=== PATIENT | female | born 2000 | race Caucasian/White ===

== ENCOUNTER 2020-04-04 06:44 | Emergency (ER) | payer BC ==
[2020-04-04] MEDS ORDERED: Sodium Chloride 0.9% 10 ML Syringe FLUSH PRN (07:08)
[2020-04-04] MEDS ORDERED: Ondansetron 4 MG/2 ML SDV IVPUSH ONE (07:08)
[2020-04-04] MEDS ORDERED: Sodium Chloride 0.9% 1,000 ML IV STA (07:08)
[2020-04-04] MEDS ORDERED: HYDROmorphone 1 MG/ML Syringe IVPUSH ONE (07:15)
--- NOTE | 2020-04-04 07:15 | EDM.PDOC ---
ED HPI GENERAL MEDICAL PROBLEM - General Chief Complaint: Abdominal Pain Stated Complaint: OVARIAN CYST ABDOMINAL PAIN Time Seen by Provider: 04/04/20 06:51 Source of Information: Reports: Patient History Limitations: Reports: No Limitations - History of Present Illness INITIAL COMMENTS - FREE TEXT/NARRATIVE: The patient presents with right lower abdomen pain, nausea and chills. She has been having this for about a month. She was seen at the ER in [place] on 03/31/2020. She had labs a CT of her abdomen and pelvis and a pelvic US. She was found to have some haziness to her left kidney worrisome for a pyelonephritis but her labs and UA did not support that diagnoses. She also had a 4.1 simple cyst to the right ovary. The pain is worse in the right abdomen. She has no fever but she does have chills. She has some chest pain at times. She has no shortness of breath or cough. She has no dysuria or flank pain. Onset: Gradual Duration: Week(s): Location: Reports: Abdomen Quality: Reports: Sharp Severity: Moderate Improves with: Reports: None Worsens with: Reports: None Associated Symptoms: Reports: Chest Pain, Fever/Chills. Denies: Cough, Headaches, Nausea/Vomiting, Shortness of Breath Right Lower Abdomen Pain Score (Numeric/FACES): 8 - Related Data Allergies Allergy/AdvReac Type Severity Reaction Status Date / Time No Known Allergies Allergy Verified 04/04/20 07:04 ED ROS GENERAL - Review of Systems Review Of Systems: See Below Constitutional: Reports: Chills. Denies: Fever HEENT: Reports: No Symptoms Respiratory: Reports: No Symptoms Cardiovascular: Reports: Chest Pain Endocrine: Reports: No Symptoms GI/Abdominal: Reports: Abdominal Pain, Nausea. Denies: Diarrhea, Vomiting : Reports: No Symptoms Musculoskeletal: Reports: No Symptoms Skin: Reports: No Symptoms ED EXAM, GI/ABD - Physical Exam Exam: See Below Exam Limited By: No Limitations General Appearance: Alert, No Apparent Distress Ears: Normal External Exam Nose: Normal Inspection Head: Atraumatic, Normocephalic Neck: Normal Inspection Respiratory/Chest: No Respiratory Distress, Lungs Clear, Normal Breath Sounds Cardiovascular: Regular Rate, Rhythm, No Edema, No Murmur GI/Abdominal Exam: Soft, No Organomegaly, No Mass, Tender (Moderate tednerness to the right lower abdomen) Back Exam: Normal Inspection Extremities: Normal Inspection Course - Vital Signs Last Recorded V/S: Last Vital Signs Temp 98.5 F 04/04/20 06:55 Pulse 80 04/04/20 06:55 Resp 18 04/04/20 06:55 BP 124/87 04/04/20 06:55 Pulse Ox 100 04/04/20 06:55 - Orders/Labs/Meds Orders: Active Orders 24 hr Category Date Time Status Peripheral IV Care [RC] . DIRECTED Care 04/04/20 07:08 Active Sodium Chloride 0.9% [Saline Flush] Med 04/04/20 07:08 Active 10 ml FLUSH ASDIRECTED PRN ED Antiemetic Medication Reflex [OM.PC] Stat Oth 04/04/20 07:08 Ordered Peripheral IV Insertion Adult [OM.PC] Stat Oth 04/04/20 07:08 Ordered Medication Orders Sodium Chloride (Saline Flush) 10 ml FLUSH ASDIRECTED PRN PRN Reason: Keep Vein Open Last Admin: 04/04/20 07:24 Dose: 10 ml Documented by: MARIANO Labs: Laboratory Tests 04/04/20 04/04/20 04/04/20 Range/Units 07:25 07:25 07:25 WBC 9.85 (3.98-10.04) K/mm3 RBC 3.77 L (3.98-5.22) M/mm3 Hgb 10.6 L (11.2-15.7) gm/dl Hct 33.2 L (34.1-44.9) % MCV 88.1 (79.4-94.8) fl MCH 28.1 (25.6-32.2) pg MCHC 31.9 L (32.2-35.5) g/dl RDW Std Deviation 40.3 (36.4-46.3) fL Plt Count 313 (182-369) K/mm3 MPV 10.5 (9.4-12.3) fl Neut % (Auto) 54.9 (34.0-71.1) % Lymph % (Auto) 30.1 (19.3-51.7) % [place] % (Auto) 10.5 (4.7-12.5) % Eos % (Auto) 3.8 (0.7-5.8) Baso % (Auto) 0.6 (0.1-1.2) % Neut # (Auto) 5.42 (1.56-6.13) K/mm3 Lymph # (Auto) 2.96 (1.18-3.74) K/mm3 [place] # (Auto) 1.03 H (0.24-0.36) K/mm3 Eos # (Auto) 0.37 H (0.04-0.36) K/mm3 Baso # (Auto) 0.06 (0.01-0.08) K/mm3 Sodium 141 (136-145) mEq/L Potassium 3.8 (3.5-5.1) mEq/L Chloride 105 (98-107) mEq/L Carbon Dioxide 22 (21-32) mEq/L Anion Gap 17.8 H (5-15) BUN 17 (7-18) mg/dL Creatinine 0.9 (0.55-1.02) mg/dL Est Cr Clr Drug Dosing 78.20 mL/min Estimated GFR (MDRD) > 60 (>60) mL/min BUN/Creatinine Ratio 18.9 H (14-18) Glucose 94 (74-106) mg/dL Calcium 8.5 (8.5-10.1) mg/dL Total Bilirubin 0.3 (0.2-1.0) mg/dL AST 18 (15-37) U/L ALT 22 (14-59) U/L Alkaline Phosphatase 91 (46-116) U/L C-Reactive Protein 0.6 (<1.0) mg/dL Total Protein 7.1 (6.4-8.2) g/dl Albumin 3.6 (3.4-5.0) g/dl Globulin 3.5 gm/dL Albumin/Globulin Ratio 1.0 (1-2) Lipase 117 (73-393) U/L HCG, Qual Negative (NEGATIVE) Urine Color (Yellow) Urine Appearance (Clear) Urine pH (5.0-8.0) Ur Specific [place] (1.005-1.030) Urine Protein (Negative) Urine Glucose (UA) (Negative) Urine Ketones (Negative) Urine Occult Blood (Negative) Urine Nitrite (Negative) Urine Bilirubin (Negative) Urine Urobilinogen (0.2-1.0) Ur Leukocyte Esterase (Negative) Urine RBC (0-5) /hpf Urine WBC (0-5) /hpf Ur Squamous Epith Cells (0-5) /hpf Urine Bacteria (FEW) /hpf Urine Mucus (FEW) /hpf 04/04/20 Range/Units 07:35 WBC (3.98-10.04) K/mm3 RBC (3.98-5.22) M/mm3 Hgb (11.2-15.7) gm/dl Hct (34.1-44.9) % MCV (79.4-94.8) fl MCH (25.6-32.2) pg MCHC (32.2-35.5) g/dl RDW Std Deviation (36.4-46.3) fL Plt Count (182-369) K/mm3 MPV (9.4-12.3) fl Neut % (Auto) (34.0-71.1) % Lymph % (Auto) (19.3-51.7) % [place] % (Auto) (4.7-12.5) % Eos % (Auto) (0.7-5.8) Baso % (Auto) (0.1-1.2) % Neut # (Auto) (1.56-6.13) K/mm3 Lymph # (Auto) (1.18-3.74) K/mm3 [place] # (Auto) (0.24-0.36) K/mm3 Eos # (Auto) (0.04-0.36) K/mm3 Baso # (Auto) (0.01-0.08) K/mm3 Sodium (136-145) mEq/L Potassium (3.5-5.1) mEq/L Chloride (98-107) mEq/L Carbon Dioxide (21-32) mEq/L Anion Gap (5-15) BUN (7-18) mg/dL Creatinine (0.55-1.02) mg/dL Est Cr Clr Drug Dosing mL/min Estimated GFR (MDRD) (>60) mL/min BUN/Creatinine Ratio (14-18) Glucose (74-106) mg/dL Calcium (8.5-10.1) mg/dL Total Bilirubin (0.2-1.0) mg/dL AST (15-37) U/L ALT (14-59) U/L Alkaline Phosphatase (46-116) U/L C-Reactive Protein (<1.0) mg/dL Total Protein (6.4-8.2) g/dl Albumin (3.4-5.0) g/dl Globulin gm/dL Albumin/Globulin Ratio (1-2) Lipase (73-393) U/L HCG, Qual (NEGATIVE) Urine Color Yellow (Yellow) Urine Appearance Clear (Clear) Urine pH 7.5 (5.0-8.0) Ur Specific [place] 1.020 (1.005-1.030) Urine Protein Negative (Negative) Urine Glucose (UA) Negative (Negative) Urine Ketones Negative (Negative) Urine Occult Blood Negative (Negative) Urine Nitrite Negative (Negative) Urine Bilirubin Negative (Negative) Urine Urobilinogen 0.2 (0.2-1.0) Ur Leukocyte Esterase Trace H (Negative) Urine RBC 0-5 (0-5) /hpf Urine WBC 5-10 H (0-5) /hpf Ur Squamous Epith Cells 0-5 (0-5) /hpf Urine Bacteria Moderate H (FEW) /hpf Urine Mucus Moderate H (FEW) /hpf Meds: Medications Generic Name Dose Route Start Last Admin Trade Name Sravan PRN Reason Stop Dose Admin Sodium Chloride 10 ml 04/04/20 07:08 04/04/20 07:24 Saline Flush FLUSH 10 ml ASDIRECTED PRN Administration Keep Vein Open Discontinued Medications Generic Name Dose Route Start Last Admin Trade Name Sravan PRN Reason Stop Dose Admin Hydromorphone HCl 1 mg 04/04/20 07:15 04/04/20 07:24 Dilaudid IVPUSH 04/04/20 07:16 1 mg ONETIME ONE Administration Sodium Chloride 1,000 mls @ 1,000 mls/hr 04/04/20 07:08 04/04/20 07:24 Normal Saline IV 04/04/20 08:07 1,000 mls/hr .BOLUS STA Administration Ondansetron HCl 4 mg 04/04/20 07:08 04/04/20 07:24 Zofran IVPUSH 04/04/20 07:09 4 mg ONETIME ONE Administration - Re-Assessments/Exams Free Text/Narrative Re-Assessment/Exam: 04/04/20 07:14 I ordered an IV NS 1L bolus, zofran 4mg IV, dilaudid 1mg IV, labs, UA and a pelvic US. 04/04/20 08:44 Her WBC was normal. Her Hgb was low at 10.6. Her anion gap is elevated at 17.8. Her lipase is normal. Her HCG is negative. Her UA shows a UTI. Given the CT findings form a few days ago I feel she does have pyelonephritis. She does not have a elevated WBC or fever so it is early and mild. I will treat her with some antibiotics. Her US shows small 3.2 cm hemorrhagic cyst believed to be physiologic within the right ovary. Small amount of free fluid within the pelvis most likely physiologic. Pelvic US study is otherwise unremarkable. Departure - Departure Time of Disposition: 08:50 Disposition: Home, Self-Care 01 Condition: Good Clinical Impression: Pyelonephritis, Right ovarian cyst UTI (urinary tract infection) Qualifiers: Urinary tract infection type: acute pyelonephritis Qualified Code(s): N10 - Acute pyelonephritis - Discharge Information *PRESCRIPTION DRUG MONITORING PROGRAM REVIEWED*: Not Applicable *COPY OF PRESCRIPTION DRUG MONITORING REPORT IN PATIENT SHIMA: Not Applicable Referrals: Jeimy Childs MD [Primary Care Provider] - 1 Week Forms: ED Department Discharge, ED Return to Work/School Form Additional Instructions: Drink plenty of fluids. Take the keflex 2 times per day for 7 days. Take tylenol or motrin for pain. If that does not help, try the hydrocodone. Follow up with Dr Roche this week. Please return if you are worse. Sepsis Event Note (ED) - Evaluation Sepsis Screening Result: No Definite Risk - Focused Exam Vital Signs: Vital Signs Temp Pulse Resp BP Pulse Ox 04/04/20 06:55 98.5 F 80 18 124/87 100 - My Orders Last 24 Hours: My Active Orders 04/04/20 07:08 Peripheral IV Care [RC] . DIRECTED Sodium Chloride 0.9% [Saline Flush] 10 ml FLUSH ASDIRECTED PRN ED Antiemetic Medication Reflex [OM.PC] Stat Peripheral IV Insertion Adult [OM.PC] Stat - Assessment/Plan Last 24 Hours: My Active Orders 04/04/20 07:08 Peripheral IV Care [RC] . DIRECTED Sodium Chloride 0.9% [Saline Flush] 10 ml FLUSH ASDIRECTED PRN ED Antiemetic Medication Reflex [OM.PC] Stat Peripheral IV Insertion Adult [OM.PC] Stat
--- NOTE | 2020-04-04 08:29 | US ---
Pelvic ultrasound: Multiple real-time images were obtained transvaginally. Comparison: No prior pelvic imaging is available. Findings: Uterus is anteverted. No myometrial abnormality is appreciated. Endometrial thickness is normal at 1.0 cm. There is a minimal amount of free fluid seen within the pelvis which is believed to be physiologic. Small hemorrhagic cyst is noted within the right ovary measuring approximately 3.2 cm. Follicles are noted within both ovaries. No additional abnormality is seen. Measurements: Uterus: Length 8.0 cm, AP height 4.2 cm, transverse width 4.7 cm Right ovary: 4.7 x 2.4 x 2.7 cm Left ovary: 3.4 x 1.1 x 1.5 cm Impression: 1. Small 3.2 cm hemorrhagic cyst believed to be physiologic within the right ovary. 2. Small amount of free fluid within the pelvis most likely physiologic. 3. Pelvic ultrasound study is otherwise unremarkable. Diagnostic code #2
[2020-04-04] MEDS ORDERED: Cephalexin 500 MG Cap PO ONE (08:50)
== END 2020-04-04 09:19 | disposition home or self-care (01) ==
LOC: JD.ED 06:44
DX: N10 Acute pyelonephritis (principal); N83.201 Unspecified ovarian cyst, right side
CPT/HCPCS: 36415; 76830; 80053; 81001; 83690; 84703; 85025; 86140; 96374; 96375; 99284; A9270; J1170; J2405; J7030

== ENCOUNTER 2020-11-20 19:25 | Emergency (ER) | payer BC ==
--- NOTE | 2020-11-20 21:03 | EDM.PDOC ---
ED HPI GENERAL MEDICAL PROBLEM - General Chief Complaint: Respiratory Problem Stated Complaint: COUGH/SOB/BODYACHE/NAUSEA Time Seen by Provider: 11/20/20 19:40 Source of Information: Reports: Patient, RN Notes Reviewed History Limitations: Reports: No Limitations - History of Present Illness INITIAL COMMENTS - FREE TEXT/NARRATIVE: Patient is a 20-year-old female presenting to the emergency department with complaints of a 2-day history of nausea, mild cough, and congestion. Patient is 11 weeks . Reports that she had a known Covid contact approximate 3 days ago. She is concerned she may have Covid. Denies any chest pain or shortness of breath. She has no chronic medical conditions. - Related Data Allergies Allergy/AdvReac Type Severity Reaction Status Date / Time No Known Allergies Allergy Verified 11/20/20 19:39 Home Meds: Home Meds FLUoxetine [PROzac] 11/20/20 [History] Vits #93/Iron Fum/FA [ Formula Tablet] 1 tab PO DAILY 11/20/20 [History] Past Medical History HEENT History: Reports: Impaired Vision Cardiovascular History: Reports: Heart Murmur Respiratory History: Reports: Asthma [employer] History: Reports: Other [employer] History: ovarian cyst Psychiatric History: Reports: Depression Social & Family History - Tobacco Use Tobacco Use Status *Q: Never Tobacco User - Caffeine Use Caffeine Use: Reports: Coffee - Recreational Drug Use Recreational Drug Use: No ED ROS GENERAL - Review of Systems Review Of Systems: See Below Constitutional: Reports: No Symptoms. Denies: Fever, Chills HEENT: Reports: Sinus Problem (Congestion) Respiratory: Reports: Cough. Denies: Shortness of Breath, Pleuritic Chest Pain Cardiovascular: Reports: No Symptoms. Denies: Chest Pain Endocrine: Reports: No Symptoms GI/Abdominal: Reports: Nausea. Denies: Abdominal Pain, Diarrhea : Reports: No Symptoms Musculoskeletal: Reports: Other (body aches) Skin: Reports: No Symptoms Neurological: Reports: No Symptoms Psychiatric: Reports: No Symptoms Hematologic/Lymphatic: Reports: No Symptoms Immunologic: Reports: No Symptoms ED EXAM, GENERAL - Physical Exam Exam: See Below Exam Limited By: No Limitations General Appearance: Alert, WD/WN, No Apparent Distress Respiratory/Chest: No Respiratory Distress, Lungs Clear, Normal Breath Sounds, No Accessory Muscle Use, Chest Non-Tender Cardiovascular: Normal Peripheral Pulses, Regular Rate, Rhythm, No Edema, No Gallop, No JVD, No Murmur, No Rub GI/Abdominal: Normal Bowel Sounds, Soft, Non-Tender, No Organomegaly, No Distention, No Abnormal Bruit, No Mass (Female) Exam: Heart Tones (178) Neurological: Alert, Oriented, CN II-XII Intact, Normal Cognition, Normal Gait, Normal Reflexes, No Motor/Sensory Deficits Psychiatric: Normal Affect, Normal Mood Skin Exam: Warm, Dry, Intact, Normal Color, No Rash Course - Vital Signs Last Recorded V/S: Last Vital Signs Temp 99.0 F 11/20/20 19:36 Pulse 88 11/20/20 19:36 Resp 16 11/20/20 19:36 BP 119/68 11/20/20 19:36 Pulse Ox 96 11/20/20 19:36 - Orders/Labs/Meds Labs: Laboratory Tests 11/20/20 Range/Units 19:49 SARS-CoV-2 RNA ([facility]EN[facility]) Negative (NEGATIVE) - Re-Assessments/Exams Free Text/Narrative Re-Assessment/Exam: Patient is a 20-year-old female presenting to the emergency department with concerns of possible Covid symptoms. Reports she had a known Covid exposure 3 days ago. Reports nausea, however she is unsure if this is related to her , body aches, mild cough, and congestion. Vital signs in triage were normal. She is oxygenating 96% on room air. Lung sounds are clear to auscultation. heart tones are 178. I have ordered Covid test. 11/20/20 21:02 Covid test is negative. Patient will be discharged home. Discussed symptomatic treatment and return precautions. Discharge instructions as documented. Departure - Departure Time of Disposition: 21:02 Disposition: Home, Self-Care 01 Condition: Good Clinical Impression: Viral illness - Discharge Information *PRESCRIPTION DRUG MONITORING PROGRAM REVIEWED*: No *COPY OF PRESCRIPTION DRUG MONITORING REPORT IN PATIENT SHIMA: No Instructions: Viral Illness, Adult Referrals: Jeimy Childs MD [Primary Care Provider] - Additional Instructions: You were seen in the emergency department today for evaluation of possible Covid symptoms. You were tested for Covid and was found to be negative. As we discussed, you are likely suffering from a viral illness. Recommend increase fluid intake and rest. You may use [id number] Tylenol as needed for discomfort. If you should experience any new or worsening symptoms, please do not hesitate to return to the emergency department for reevaluation. Sepsis Event Note (ED) - Evaluation Sepsis Screening Result: No Definite Risk - Focused Exam Vital Signs: Vital Signs Temp Pulse Resp BP Pulse Ox 11/20/20 19:36 99.0 F 88 16 119/68 96
== END 2020-11-20 21:25 | disposition home or self-care (01) ==
LOC: JD.ED 19:25
DX: B34.9 Viral infection, unspecified (principal); Z20.822 Contact with and (suspected) exposure to COVID-19
CPT/HCPCS: 99283; U0002

== ENCOUNTER 2021-05-14 12:33 | Inpatient (IN) | payer BC ==
[2021-05-14] MEDS ORDERED: Betamethasone Acetate/Betamethasone Sod Phosphate 30 MG/5 ML MDV IM ONE (14:54)
[2021-05-14] MEDS ORDERED: Oxytocin/Lactated Ringers 10 UNIT/1,000 ML BAG IV ONE (16:27)
[2021-05-14] MEDS ORDERED: Sodium Chloride 0.9% 10 ML Syringe FLUSH PRN (16:39)
[2021-05-14] MEDS ORDERED: Nalbuphine 10 MG/1 ML Vial IVPUSH PRN (16:39)
[2021-05-14] MEDS ORDERED: Lactated Ringers 1,000 ML IV SCH (16:45)
[2021-05-14] MEDS ORDERED: Oxytocin/Lactated Ringers 10 UNIT/1,000 ML BAG IV SCH (16:45)
[2021-05-14] MEDS ORDERED: Witch Hazel Medicated Pads 40/Jar TOP PRN (17:53)
[2021-05-14] MEDS ORDERED: Acetaminophen 325 MG Tab PO PRN (17:53)
[2021-05-14] MEDS ORDERED: Benzocaine/Menthol 20%-0.5% Spray 78 GM Cannister TOP PRN (17:53)
[2021-05-14] MEDS ORDERED: Docusate Sodium 100 MG Cap PO PRN (17:53)
[2021-05-14] MEDS: Ibuprofen 600 MG Tab PO PRN (19:56)
[2021-05-14] MEDS ORDERED: Sodium Chloride 0.9% 10 ML Syringe FLUSH SCH (21:00)
[2021-05-15] MEDS: FLUoxetine 20 MG Cap PO SCH (09:19)
[2021-05-15] MEDS: Ibuprofen 600 MG Tab PO PRN ×2 (09:19→17:52)
[2021-05-16] MEDS: Ibuprofen 600 MG Tab PO PRN (03:19)
[2021-05-16] MEDS: FLUoxetine 20 MG Cap PO SCH (09:37)
== END 2021-05-16 11:38 | disposition home or self-care (01) | DRG 560 ==
LOC: JD.OBCHECK 12:33 → JD.OB 12:37 → JD.OBCHECK 16:13 → JD.OB 16:13 → OBSVTOIN 16:30
PROVIDERS: ADMIT Obstetrics & Gynecology; ATTEND Obstetrics & Gynecology
PROC: 10E0XZZ Delivery of Products of Conception, External Approach (ICD-10-PCS; principal; 2021-05-14)
PROC: 10907ZC Drainage of Amniotic Fluid, Therapeutic from Products of Conception, Via Natural or Artificial Opening (ICD-10-PCS; 2021-05-14)
DX: O14.04 Mild to moderate pre-eclampsia, complicating childbirth (principal); Z3A.36 36 weeks gestation of pregnancy; Z37.0 Single live birth; O36.5930 Maternal care for other known or suspected poor fetal growth, third trimester, not applicable or unspecified; O62.3 Precipitate labor; O60.14X0 Preterm labor third trimester with preterm delivery third trimester, not applicable or unspecified; O70.0 First degree perineal laceration during delivery; Z20.822 Contact with and (suspected) exposure to COVID-19
CPT/HCPCS: 36415; 59025; 59409; 81001; 82565; 82570; 82947; 83615; 84112; 84156; 84450; 84460; 84520; 84550; 85025; 86592; 86850; 86900; 86901; A9270-GY; J0702; J2590; U0002